=== PATIENT | male | born 1980 | race African-American/Black ===

== ENCOUNTER 2017-12-20 16:57 | Emergency (ER) | payer SELFPAY ==
[~2017-12-20] VITALS: Ht 170.2 cm; Wt 75.0 kg
[2017-12-20 17:00] VITALS: BP 133/75; PULSE 81; RESP 16; TEMP 98.4; O2SAT 97
--- NOTE | 2017-12-20 18:46 | RADRPT ---
EXAM DATE/TIME: 12/20/2017 18:31 [place] COMPARISON: No previous studies available for comparison. INDICATIONS : Lower back pain after falling today. MEDICAL HISTORY : None. SURGICAL HISTORY : None. ENCOUNTER: Initial ACUITY: 1 day PAIN SCORE: 6/10 LOCATION: lumbar spine. FINDINGS: There are five non-rib bearing vertebral bodies. The vertebral bodies are in normal alignment withou t evidence of subluxation or scoliosis. The disc spaces are maintained. The posterior elements are intact without evidence of spondylolysis. The pedicles are intact. Bony mineralization is normal. No fracture is identified. CONCLUSION: Normal examination for a patient of this age. Angel Gallegos MD on December 20, 2017 at 18:44 Board Certified Radiologist. This report was verified electronically.
[2017-12-20 19:00] LABS: BILIRUBIN, URINE NEG (NEG); BLOOD, URINE NEG (NEG); GLUCOSE,URINE NEG (NEG); KETONE, URINE TRACE mg/dL (NEG); NITRITE,URINE NEG (NEG); URINE LEUKOCYTE ESTERASE SMALL (NEG)
[2017-12-20 19:06] LABS: MUCUS URINE MANY /lpf (OCC); URINE COLOR YELLOW (YELLW/STRAW)
[2017-12-20 19:07] LABS: SQUAMOUS EPITHELIAL CELL URINE 0-5 /hpf (0-5)
[2017-12-20] MEDS ORDERED: IBUP1TAB7 PO (19:22)
[2017-12-20] MEDS ORDERED: CYCL10TA PO (19:23)
--- NOTE | 2017-12-20 19:23 | PD ---
HPI Chief Complaint: Musculoskeletal Complaint Time Seen by Provider: 17:47 Travel History International Travel<30 days: No Contact w/Intl Traveler<30days: No Traveled to known affect area: No History of Present Illness HPI This is a 37-year-old male here with right-sided low back pain after he had a slip and fall at [facility]. He reports he fell onto the right side twisting his back. No head injury or loss of consciousness. No paresthesia or weakness of the extremities. Symptom severity is mild. Elevated by twisting motion and bending. Alleviated with rest. PFSH Past Medical History Medical History: Denies Significant Hx Social History Alcohol Use: Yes Tobacco Use: No Substance Use: No Allergies-Medications (Allergen,Severity, Reaction): Coded Allergies: No Known Allergies (Unverified Adverse Reaction, Unknown, 12/20/17) Reported Meds & Prescriptions Reported Meds & Active Scripts Active No Active Prescriptions or Reported Medications Review of Systems Except as stated in HPI: all other systems reviewed are Neg Physical Exam Narrative GENERAL: Alert and well-appearing 37-year-old male. SKIN: Warm and dry. HEAD: Normocephalic. EYES: No injection or drainage. NECK: Supple. No midline spine tenderness CARDIOVASCULAR: Regular rate and rhythm. RESPIRATORY: Breath sounds equal bilaterally. No accessory muscle use. GASTROINTESTINAL: Abdomen soft, non-tender, nondistended. MUSCULOSKELETAL: No cyanosis, or edema. BACK: +TTP lumbar spine. No CVA tenderness. Data Data Last Documented VS Vital Signs Date Time Temp Pulse Resp B/P (MAP) Pulse Ox O2 Delivery O2 Flow Rate FiO2 12/20/17 17:00 98.4 81 16 133/75 (94) 97 Orders Orders Urinalysis - C+S If Indicated (12/20/17 18:24) Spine, Lumbar Comp W/Obliq (12/20/17 18:24) Labs Laboratory Tests Test 12/20/17 18:45 Urine Color YELLOW Urine Turbidity CLEAR Urine pH 6.0 Urine Specific [place] 1.016 Urine Protein NEG mg/dL Urine Glucose (UA) NEG mg/dL Urine Ketones TRACE mg/dL Urine Occult Blood NEG Urine Nitrite NEG Urine Bilirubin NEG Urine Leukocyte Esterase SMALL Urine WBC 3-5 /hpf Urine Squamous Epithelial Cells 0-5 /hpf Urine Mucus MANY /lpf Microscopic Urinalysis Comment CULT NOT INDICATED MDM Medical Decision Making Medical Screen Exam Complete: Yes Emergency Medical Condition: Yes Differential Diagnosis Lumbar strain, lumbar fracture, contusion, injury to the kidney Narrative Course 37-year-old male here with low back pain [facility]. There was no head injury or loss of consciousness. Patient is not anticoagulated. He has tenderness to the lumbar spine region. No CVA tenderness. UA is negative for blood. X-ray of the lumbar spine negative for fracture. She will be treated for lumbar strain Diagnosis Primary Impression: Lumbar strain Qualified Codes: S39.012A - Strain of muscle, fascia and tendon of lower back , initial encounter Referrals: Primary Care Physician Additional Instructions: Medications as directed. Use ice and/or heat for comfort. Follow-up with her primary doctor Scripts Cyclobenzaprine (Flexeril) 10 Mg Tab 10 MG PO TID for Muscle Spasm, #12 TAB 0 Refills Prov: Jamia Brooks 12/20/17 Ibuprofen (Ibuprofen) 800 Mg Tab 800 MG PO Q6HR Y for PAIN, #40 TAB 0 Refills Prov: Jamia Brooks 12/20/17 Disposition: 01 DISCHARGE HOME Condition: Stable Jamia Brooks Dec 20, 2017 19:23
== END 2017-12-20 19:36 | disposition home or self-care (01) ==
LOC: PHEFT 16:57
DX: S39.012A Strain of muscle, fascia and tendon of lower back, initial encounter (principal); W01.0XXA Fall on same level from slipping, tripping and stumbling without subsequent striking against object, initial encounter; Y92.512 Supermarket, store or market as the place of occurrence of the external cause
CPT/HCPCS: 72110; 81001; 99284